=== PATIENT | female | born 1940 | race Caucasian/White ===

== ENCOUNTER 2024-02-01 02:12 | Inpatient (IN) | payer OTHER, SELFPAY ==
[2024-01-31 21:20] VITALS: BP 120/86
[2024-01-31 21:36] LABS: % Basophils 0.3 % (0-2); % Eosinophils 0.1 % (0-6); % Immature Granulocytes 0.3 % (0-0.5); % Lymphocytes 5.6 % (20.5-51.1); % Monocytes 3.5 % (1.7-9.3); % Neutrophils 90.2 % (42.2-75.2); Absolute Lymphocytes 0.9 10^3/uL (1.2-3.4); Absolute Monocytes 0.6 10^3/uL (0.1-0.6); Absolute Neutrophils 14.4 10^3/uL (1.4-6.5); Hematocrit 48.3 % (37.0-47.0); Hemoglobin 16.7 g/dL (12.0-16.0); Mean Corp Hgb Conc. 34.6 g/dL (33.0-37.0); Mean Corpuscular Hgb 31.3 pg (27.0-31.0); Mean Corpuscular Volume 90.6 fL (81.0-99.0); Mean Platelet Volume 8.9 fL (7.4-10.4); Nucleated Red Blood Cells % 0 %; Platelet Count 248 10^3/uL (130-400); Red Blood Cell Count 5.33 10^6/uL (4.20-5.40); Red Cell Dist. Width 12.4 % (11.5-14.5); White Blood Cell Count 15.9 10^3/uL (4.8-10.8)
[2024-01-31 21:50] LABS: ALT (SGPT) 18 U/L (0-35); AST (SGOT) 29 U/L (14-36); Albumin 4.5 g/dl (3.5-5.0); Alkaline Phosphatase 100 U/L (38-126); Blood Urea Nitrogen 22 mg/dl (7-17); Calcium 10.2 mg/dl (8.4-10.2); Carbon Dioxide 30 mmol/L (22-30); Chloride 100 mmol/L (98-107); Glucose 141 mg/dl (70-99); Lipase 65 U/L (23-300); Potassium 4.4 mmol/L (3.5-5.1); Sodium 140 mmol/L (135-145); Total Bilirubin 1.1 mg/dl (0.2-1.3); Total Protein 6.8 g/dl (6.3-8.2); eGFR > 60.00
[2024-01-31 23:44] VITALS: BMI 31.5
[2024-01-31 23:47] VITALS: BP 140/61
[2024-02-01] VITALS (11 sets, daily range): BP systolic 99–125; BP diastolic 52–77; BMI 31.5
[2024-02-01] LABS: Urine Albumin Negative (Neg - Trace); Urine Bilirubin Negative (Negative); Urine Character Slightly Cloudy (Clear); Urine Color Yellow; Urine Glucose Negative (Negative); Urine Ketone Trace (Negative); Urine Leukocyte 2+ (Negative); Urine Nitrite Negative (Negative); Urine Occult Blood Trace (Negative); Urine Urobilinogen Negative (Neg - 1+)
--- NOTE | 2024-02-01 00:32 | ED.GENMED ---
History of Present Illness
General
Chief Complaint: Abdominal Symptoms
Source: patient
Exam Limitations: none
Time Seen by Provider: 01/31/24 23:03
History of Present Illness
History of Present Illness:
This is a 83 year old female that comes in with c/o abd pain. States that she started with vomiting at 12 noon today. Then she would have to go to the bathroom and she would only have little bullets. States that she couldn't even drink any water as
she would vomiting. States that she has pain and she knew she would not sleep tonight due to the pain. States that she had chills and was sweating. Denies any fever, chest pain, SOB, diarrhea, headache, dizziness, urinary burning.
Past History
Past History
ED Past Medical History: HTN and Hypercholesterolemia
ED Past Surgical History: Gynecological (vaginal hysterectomy)
Social History
Tobacco: Non-smoker
Alcohol: Occasional
Drug: None
Personal:
Living: alone
Review of Systems
Review of Systems
All Other Systems: ROS reviewed and negative except as documented in HPI and ROS
Constitutional: Reports chills and other (Sweats); Denies fever
EENT: Reports no symptoms
Respiratory: Reports no symptoms; Denies cough or trouble breathing
Cardiac: Reports no symptoms; Denies chest pain
ABD/GI: Reports abdominal pain, nausea and vomiting; Denies diarrhea
: Reports no symptoms; Denies dysuria, frequency or urgency
Musculoskeletal: Reports no symptoms
Skin: Reports no symptoms
Neurological: Reports no symptoms; Denies dizzy or headache
Psychiatric: Reports no symptoms
Phy Exam
General Physical Exam
General Presentation: no apparent distress
General age: appears stated age
General Skin: warm and dry
General Habitus: elderly
General Mental: alert
General Hydration: appears well hydrated
ENT Exam
ENT Exam: TM's normal, pharynx normal and neck supple
Eye Exam
Eye Exam: EOMI
Cardiovascular Exam
Cardiovascular Exam: regular rate/rhythm, no edema and normal peripheral pulses
Pulmonary Exam
Pulmonary Exam: lungs clear, no respiratory distress, no rales, chest non tender, no crackles, no rhonchi, no wheezing and no cough
Gastrointestinal Exam
Gastrointestinal Exam: soft, no organomegaly, no pulsatile mass, non distended, tender (Generalized abd tenderness with palpation) and other (Hypoactive bowel sounds)
Musculoskeletal Exam
Musculoskeletal Exam: full ROM and no edema
Skin Exam
Skin Exam: normal color, warm/dry, no rash and no petechia
Psychiatric Exam
Psychiatric Exam: normal mood/affect
Course
Orders/Labs/Results
Orders:
Orders
01/31/24 21:29
Complete Blood Count/With Diff Urgent
Comprehensive Metabolic Panel Urgent
Lipase Urgent
01/31/24 23:54
Urinalysis Reflex To Culture Urgent
Date Specimen was Collected: 01/31/24
Time Specimen was Collected: 23:50
Urine Microscopic Reflex Cult Urgent
Urine Culture Urgent
SANDRA Source: U
Specimen Description:
Date Specimen was Collected: 01/31/24
Time Specimen was Collected: 23:50
02/01/24 00:24
CT Abd/pelvis W Iv Cont Urgent
Comment:
Reason For Exam: Generalized abd tenderness with palpaton
0.9% Sodium Chloride 1000 ml [Nss] 1,000 ml IV BOLUS
Ketorolac [Toradol] 30 mg IV NOW STA
Ondansetron Injectable [Zofran] 4 mg IV NOW STA
02/01/24 01:12
CefTRIAXone [Rocephin] 1,000 mg IV NOW STA
02/01/24 01:20
Lactic Acid Urgent
02/01/24 02:00
Admit/Transfer Patient As Directed
Co-Sign Provider:
Level of Care: Inpatient admission
Assign to:: Medical/Surgical
Physician / Group: Waqas
Diagnosis: SBO
Reason for Hospitalization: SBO
Expected length of stay greater than two midnights?: Yes
ELOS- Estimated Length of Stay in days: 3
I certify the patient meets the requirements for IP care: Yes
Code Status As Directed
Resuscitation Status: Do not resuscitate
Reached after discussion with pt or family/Healthcare POA: Yes
PRN Pain Medication Management As Directed
May give lesser potent ordered pain med per pt: Yes
preference::
Protocol:: Medication orders for pain may be administered in a
manner that supports deferring to patient preference
when the pt is:
- Requesting an ordered lesser potent pain medication.
Least to most potent pain medications are defined
as: acetaminophen < NSAID < tramadol < opioids
(morphine, oxycodone, hydromorphone).
- Requesting a lesser dose of the same medication IF
ORDERED.
- Requesting a less intrusive route of administration
if both routes are prescribed by the provider (PO <
IV).
02/01/24 02:01
DNR Bracelet Application ONCE
02/01/24 02:18
0.9% Sodium Chloride 1000 ml [Nss] 1,000 ml IV 100 mls/hr
Acetaminophen [Tylenol] 650 mg PO Q4HPRN PRN
HYDROmorphone [Dilaudid] 0.5 mg IV Q4HPRN PRN
Prochlorperazine [Compazine] 5 mg IV Q6HPRN PRN
02/01/24 02:18
Consult Notification Routine
Specialty to Notify: Surgical
SURGICAL CONSULT Routine
Consulting Provider: Patel Prasad
Was physician already notified: No
Reason for consult: SBO
Activity As Directed
Activity Level: Ambulate
With Assistance
Bladder Scan As Directed
Follow Bladder Retention/Intermittent Cath Algorithm?: Yes
PRN if no void in __ hours: 6
Frequency: Per Retention Algorithm
If Bladder Scan Result >: 400
then:: Straight cath
I/O [Intake/ Output] As Directed
Frequency: Per unit guidelines
Pneumatic Compression Sleeves As Directed
Type: Knee high
Straight Cath As Directed
Frequency: Per Retention Algorithm
Additional Instructions: straight cath as needed per acute urinary retention algorithm for 24 hrs
Additional Instructions: for bladder scan greater than 400 mL
Vital Signs As Directed
Frequency: Per unit guidelines
Oxygen Therapy [O2 Therapy] [RESP] Routine
Titrate/Wean O2 to maintain O2 sat greater than (%): 94
DX Deep Vein Thrombosis Video Routine
02/01/24 Breakfast
NPO
Allow oral meds: Yes
Allow clear liquids: Sips of Clears
Basic Metabolic Panel IN AM
Complete Blood Count/No Diff IN AM
Abnormal Lab Results
01/31/24 01/31/24
21:29 23:54
WBC 15.9 H 10^3/uL
(4.8-10.8)
Hgb 16.7 H g/dL
(12.0-16.0)
Hct 48.3 H %
(37.0-47.0)
MCH 31.3 H pg
(27.0-31.0)
Absolute Neuts (auto) 14.4 H 10^3/uL
(1.4-6.5)
Absolute Lymphs (auto) 0.9 L 10^3/uL
(1.2-3.4)
Neutrophils % 90.2 H %
(42.2-75.2)
Lymphocytes % 5.6 L %
(20.5-51.1)
BUN 22 H mg/dl
(7-17)
Glucose 141 H mg/dl
(70-99)
Urine Ketones Trace A
(Negative)
Ur Occult Blood Reflex Trace A
(Negative)
Leukocyte Esterase Rfl 2+ A
(Negative)
Urine RBC 3-6 A /HPF
(0-2)
Urine WBC (Reflex) 70-80 A /HPF
(0-5)
Urine Bacteria (Reflex) Moderate A
(Negative)
01/31/24 21:29
01/31/24 21:29
Leukocytosis, H/H elevated. Dehydration. hyperglycemia. Lipase normal at 65, Urine positive for infection. Lactic acid normal at 1.6
Vital Signs
Initial and Last Documented VS:
Initial Vital Signs
Temp Pulse Resp BP Pulse Ox
98.1 F 86 24 120/86 94
01/31/24 21:20 01/31/24 21:20 01/31/24 21:20 01/31/24 21:20 01/31/24 21:20
Last Documented Vital Signs
Temp Pulse Resp BP Pulse Ox
98.1 F 86 24 125/72 91
01/31/24 21:20 01/31/24 21:20 01/31/24 21:20 02/01/24 02:00 02/01/24 02:15
MDM/Problems Addressed
Differential Diagnosis Includes:
Diverticulitis, Bowel obstruction. Urinary tract infection
MDM/Problems Addressed:
This is a 83 year old female that comes in with c/o abd pain and vomiting. States that this started at 12 noon today and the pain has gotten worse. States that she also has very little round balls of stool after she vomits.
Will check labs and get CT scan. Will give IV fluids, and medication for nausea and pain.
Back into see patient and daughter. Explained that she has a urinary tract infection and that she has a Bowel obstruction that may be due to adhesions. Patient given IV Rocephin for the UTI. Will admit patient. Hospitalist notified.
Chronic conditions affecting care:
NA
Acute Exacerbation and/or Progression of Chronic Illness:
NA
*Radiology
Radiology exam reviewed: radiology read reviewed (CT night hawk- Dilated small bowel measuring up to 3cm filled with fluid with a transition point in the right lower quadrant just proximal to the terminal ileum suggestive of a distal ileal small
bowel obstruction. There is also a focal loop of small bowel that has an acute angle (series 201 im 59) ) and all reviewed NAD by ED Provider (CT cont- also likely related to adhesions. Colonic diverticulosis without CT evidence of diverticulitis.
Multiple calcified gallstones. No free fluid nor free air. )
*Pulse Oximetry
Patient hypoxic: no
*EKG
Interpreted by ED Provider?: NA
Rate: EKG- N/A
*Floor And Wall Applier Liquid Interpretation
Rate: Floor And Wall Applier Liquid- N/A
*Critical Care Note
Total Time (30-74mins, 75-104mins- exclusive of procedures): Not Applicable
ED Attending Note
-
Portions of this chart may have been created with voice recognition software.� Occasional wrong word or��sound alike� substitutions may have occurred due to the inherent limitations of voice recognition software.
Discharge Plan
Departure
Patient Disposition: Admit
Date of Disposition: 02/01/24
Time of Disposition: 01:35
Admit to: Med/Surg
Presentation/result/management discussed w/ accepting MD/DO: Hospitalist
Patient with high blood pressure during this ER visit?: No
Condition: Good
Covid-19: Not Applicable
Discharge Problem:
Small bowel obstruction due to adhesions, Urinary tract infection
Interventions
Interventions:
*Risk Screen - Suicide Last Done: 01/31/24 21:20
*General Assessment Last Done: 01/31/24 23:44
*Neglect/Abuse Screening Last Done: 01/31/24 21:20
*ED COVID-19 Vaccine History Last Done: 01/31/24 23:14
PN-Gvpgwl-Zloybounzo Assessment Last Done: 01/31/24 23:44
[2024-02-01] MEDS: TORADOL 30 MG IV (00:37)
[2024-02-01] MEDS: NSS 1000 IV ×4 (00:37→23:07)
[2024-02-01] MEDS: ZOFRAN 4 MG IV (00:37)
[2024-02-01 00:59] LABS: Urine Squamous Cell 26-30 /LPF (Few)
[2024-02-01 01:00] LABS: Urine White Cell 70-80 /HPF (0-5)
[2024-02-01 01:01] LABS: Urine Bacteria Moderate (Negative)
[2024-02-01] MEDS: ROCEPHIN 1000 MG IV (01:17)
[2024-02-01 01:41] LABS: Lactic Acid 1.6 mmol/L (0.7-2.0)
--- NOTE | 2024-02-01 02:03 | HPS.HSE ---
Family Physician
-
Family Physician: Clara Tobin MD
Chief Complaint
-
Abd Pain, N/V
History of Present Illness
Patient is an 83y F with PMH significant for hypertension who presents to ED complaining of N/V and abdominal pain. Patient states that she was feeling very well until around noon today. After lunch, she developed crampy lower abdominal pain,
nausea and emesis. She had several episodes of emesis throughout the afternoon - each accompanied by crampy discomfort and an urge to move her bowels. With great effort / straining, she was able to pass only multiple, small, pebble-like stools.
Her last episode of emesis and small bowel movement was around 8PM.
She has had no emesis since that time. No BM and no flatus.
Patient denies any prior history of similar symptoms.
She has remote history of a hysterectomy.
Medical History
Past Medical History
Past Medical History: Reports Other
Additional Past Medical History:
Hypertension
Anxiety / Depression
Past Surgical History: Reports Other
Additional Past Surgical History:
Hysterectomy
Social History
Tobacco: Non-smoker
Alcohol: Occasional
Drug: None
Personal: ( in November.)
Family History
Family History: Not pertinent
Allergies / Home Medications
Allergies reflects when Allergies were last updated in [employer].
Home Medications with original date entered in [employer]
Allergy/Medication List:
Allergies
Allergy/AdvReac Type Severity Reaction Status Date / Time
No Known Allergies Allergy Verified 01/31/24 21:23
Home Medications
escitalopram oxalate 10 mg tablet 10 mg PO DAILY 02/01/24
hydrochlorothiazide 25 mg tablet 25 mg PO DAILY 02/01/24
lisinopril 5 mg tablet 5 mg PO DAILY 02/01/24
Review of Systems
-
History Source: Patient
A 12 point ROS was completed and negative except as noted: Yes
Constitutional: Reports Fatigue; Denies Fever or Chills
Respiratory: Denies Cough or Trouble Breathing
Cardiac: Denies Chest Pain or Palpitations
Abdomen/GI: Reports Abdominal Pain, Nausea, Vomiting and Constipated
: Denies Dysuria or Flank Pain
Musculoskeletal: Denies Joint Pain or Edema
Neurological: Denies Dizzy or Headache
Physical Exam
Vital Signs
Vital Signs
Temp Pulse Resp BP Pulse Ox
98.1 F 86 24 110/64 89
01/31/24 21:20 01/31/24 21:20 01/31/24 21:20 02/01/24 01:20 02/01/24 01:20
Physical Exam
General: Other (83y F in no acute distress.)
HEENT: Moist mucous membranes and PERRLA
Respiratory: Clear; No Wheezes, Rales or Rhonchi
Cardiac: S1/S2 and Regular Rhythm; No Murmur
GI: Other (Softly distended. Bowel sounds diminished but present. Diffusely tender.)
Musculoskeletal: No Clubbing, No Cyanosis and No Edema
Neuro: AO x 3
Laboratory Results
-
01/31/24 21:29
01/31/24 21:29
Laboratory Results
Lactic Acid 1.6 mmol/L (0.7-2.0) 02/01/24 01:20
Total Bilirubin 1.1 mg/dl (0.2-1.3) 01/31/24 21:29
AST 29 U/L (14-36) 01/31/24 21:29
ALT 18 U/L (0-35) 01/31/24 21:29
Alkaline Phosphatase 100 U/L (38-126) 01/31/24 21:29
Lipase 65 U/L (23-300) 01/31/24 21:29
Impression/Plan
-
A/P: Patient is an 83y F with PMH significant for hypertension who presents to ED complaining of N/V and abdominal pain since this afternoon.
SBO
- Admit for further evaluation and treatment.
- CT done in the ED shows dilated small bowel with transition point in the distal ileum / RLQ area.
- Prior surgical history of hysterectomy.
- NPO, IVFs, pain control and antiemetics.
- Place NG for decompression if recurrent emesis or increased pain.
- Surgery evaluation for additional recommendations.
- Follow for clinical improvement.
Leukocytosis
- Likely stress response and hypovolemia with coincident increase in Hgb as well.
- Afebrile and non-toxic appearing.
- Patient has no urinary complaints or other infectious symptoms.
- UA is a contaminated specimen with negative nitrites - doubt UTI.
- Observe off of further abx.
- Follow for changes in CBC.
Benign Hypertension
- NPO / hold usual meds for now.
- Can resume once patient tolerating diet.
- Follow MARTINA in the interim - remains controlled at present.
Anxiety / Depression
Grief
- in November after long illness.
- Resume escitalopram once able to take POs.
DVT Prophylaxis: SCDs
Code Status: DNR
[2024-02-01 05:37] LABS: Hematocrit 39.9 % (37.0-47.0); Hemoglobin 13.6 g/dL (12.0-16.0); Mean Corp Hgb Conc. 34.1 g/dL (33.0-37.0); Mean Corpuscular Hgb 31.3 pg (27.0-31.0); Mean Corpuscular Volume 91.7 fL (81.0-99.0); Mean Platelet Volume 8.8 fL (7.4-10.4); Platelet Count 219 10^3/uL (130-400); Red Blood Cell Count 4.35 10^6/uL (4.20-5.40); Red Cell Dist. Width 12.5 % (11.5-14.5); White Blood Cell Count 13.1 10^3/uL (4.8-10.8)
[2024-02-01 06:08] LABS: Blood Urea Nitrogen 22 mg/dl (7-17); Calcium 8.6 mg/dl (8.4-10.2); Carbon Dioxide 28 mmol/L (22-30); Chloride 106 mmol/L (98-107); Estimated Creatinine Clearance 58 ml/min; Glucose 118 mg/dl (70-99); Potassium 4.5 mmol/L (3.5-5.1); Sodium 141 mmol/L (135-145); eGFR > 60.00
--- NOTE | 2024-02-01 09:20 | CON.GS ---
Medical History
-
Chief Complaint: Abdominal pain, nausea, emesis
History of Present Illness:
Patient is an 83 yo F with a PMH notable for depression/anxiety, HTN, HLD, and s/p vaginal hysterectomy and bladder sling procedure who presents with 24 hours of abdominal pain, nausea, vomiting. Ms. Salinas states that her symptoms began somewhat
acutely yesterday afternoon. She reports waves of intense generalized crampy abdominal pain, though primarily in her lower abdomen. Associated nausea and vomiting. Her symptoms progressed prompting presentation to the ED. Associated chills, but
no fevers. Over the previous few months, the patient and her daughter report episodes of diarrhea. She denies any abdominal cramping, bloating, nausea, or vomiting during these episodes. She previously attributed these episodes to stress and IBS
related to the recent passing of her late . Prior colonoscopy was over 10 years ago with reported removal of polyps. No reported history of GI malignancies. She was told that she has had diverticulosis, but denies any clear episodes of
diverticulitis. Currently she states that her symptoms are much improved. She reports some mild to moderate residual abdominal discomfort. She is passing a small amount of flatus. No BM. No nausea.
Past Medical History
Past Medical History: HTN, Hypercholesterolemia and Psychiatric (Depression/anxiety)
Past Surgical History: Gynecological (Transvaginal hysterectomy, bladder sling procedure)
Social History
Tobacco: Non-Smoker
Alcohol: None
Drug: None
Family History
Family History: Reviewed & Noncontributory
Allergies / Home Medications
Allergy/AdvReac Type Severity Reaction Status Date / Time
No Known Allergies Allergy Verified 01/31/24 21:23
�Medication �Instructions �Recorded �Confirmed �Type
aspirin 325 mg tablet 325 mg PO BIDPRN PRN headaches 02/01/24 02/01/24 History
atorvastatin 20 mg tablet (Lipitor) 20 mg PO QPM 02/01/24 02/01/24 History
calcium carbonate 500 mg PO DAILY 02/01/24 02/01/24 History
clonazepam 0.5 mg tablet 0.5 mg PO HS 02/01/24 02/01/24 History
docusate sodium 100 mg capsule 100 mg PO BIDPRN PRN constipation 02/01/24 02/01/24 History
(Colace)
escitalopram oxalate 10 mg tablet 10 mg PO DAILY 02/01/24 02/01/24 History
hydrochlorothiazide 25 mg tablet 25 mg PO DAILY 02/01/24 02/01/24 History
lisinopril 5 mg tablet 5 mg PO DAILY 02/01/24 02/01/24 History
vitamin B complex 1 tab PO DAILY 02/01/24 02/01/24 History
Review of Systems
-
A 10 point review of systems was completed, and was negative except as per HPI.
Physical Exam
Vital Signs
Temp Pulse Resp BP Pulse Ox
98.5 F 63 17 108/58 93
02/01/24 08:17 02/01/24 08:17 02/01/24 08:17 02/01/24 08:17 02/01/24 08:17
01/31/24 02/01/24 02/02/24
06:59 06:59 06:59
Actual Weight 78 kg
Body Mass Index (BMI) 31.5
Lab Results
02/01/24 05:29
02/01/24 05:29
WBC 13.1 10^3/uL (4.8-10.8) H 02/01/24 05:29
Hgb 13.6 g/dL (12.0-16.0) 02/01/24 05:29
Hct 39.9 % (37.0-47.0) 02/01/24 05:29
Plt Count 219 10^3/uL (130-400) 02/01/24 05:29
Abs Immat Gran (auto) 0.0 10^3/uL (0-0.05) 01/31/24 21:29
Neutrophils % 90.2 % (42.2-75.2) H 01/31/24 21:29
Physical Exam
General: Well Developed, Well Nourished and No Apparent Distress
HEENT: Normocephalic and Anicteric
Respiratory: Non Labored Respirations
Cardiac: Regular Rhythm
GI: Soft, Tender (Mild/moderate lower abdomen), Distended (Mild/moderate lower abdomen) and Other (Non-peritoneal (no rebound or guarding))
Skin: Warm and Dry
Neuro: Nonfocal/Grossly Intact
Data Reviewed
-
CT Scan: Image Personally Visualized and interpreted and Report Reviewed by me
Labs: Labs Reviewed by me
Assessment / Plan
-
Patient is an 83 yo F p/w likely SBO
The natural history pathophysiology of bowel obstructions was reviewed. Workup thus far including labs and CT scan imaging was reviewed. No clinical or radiographic concern for bowel ischemia, closed-loop obstruction, pneumatosis, or free air.
Somewhat concerning given her lack of prior abdominal surgeries and advanced age, though no evidence of a mass on CT scan imaging. Signs of clinical improvement. Recommend trial of medical management with continued bowel rest, IV fluids,
ambulation, minimize narcotics, and correction of electrolytes. If no improvement/resolution in symptoms after a 24-hour period of bowel rest would proceed with UGI for diagnostic and therapeutic purposes. Patient and daughter agree. All
questions answered.
-- NPO sips of clears for comfort only
-- IVF
-- NGT for any nausea or worsening pain - pros and cons, risks and benefits of NGT placement were reviewed, given her clinical improvement with passage of flatus, improved abdominal pain, and lack of current nausea we will hold on an NGT at this time
-- OOB/ambulate
-- Correct lytes
-- Minimize narcotics
-- UGI tomorrow if no clinical improvement
--- NOTE | 2024-02-01 09:22 | PTCARENOTE ---
pt aaox3. states abd pain has improved now 2/10 does not want pain med now. encouraged to let rn know if it gets worse. plan of care reviewed with pt and daughter at bedside.
--- NOTE | 2024-02-01 13:50 | W.PN.HOSP.TC ---
Today's Communication/Plan
-
npo, ice chips for today
ngt and UGI if symptoms worsen
Assessment / Plan
Assessment / Plan
Physical Exam
General: Other (83y F in no acute distress.)
HEENT: Moist mucous membranes and PERRLA
Respiratory: Clear; No Wheezes, Rales or Rhonchi
Cardiac: S1/S2 and Regular Rhythm; No Murmur
GI: Other (soft, non distended. Bowel sounds diminished but present. )
A/P: Patient is an 83y F with PMH significant for hypertension who presents to ED complaining of N/V and abdominal pain since this afternoon.
SBO
- Admit for further evaluation and treatment.
- CT done in the ED shows dilated small bowel with transition point in the distal ileum / RLQ area.
- Prior surgical history of hysterectomy.
- NPO with Ice Chips, IVFs, pain control and antiemetics.
- Surgery evaluation for additional recommendations.
- Follow for clinical improvement.
- NGT if worsened
Leukocytosis
- Likely stress response and hypovolemia with coincident increase in Hgb as well.
- Afebrile and non-toxic appearing.
-no urinary symptoms
- Observe off of further abx.
- Follow fever curve, CBC.
Benign Hypertension
- NPO / hold usual meds for now.
- Can resume once patient tolerating diet.
- Follow MARTINA in the interim - remains controlled at present.
Anxiety / Depression
Grief
- in November after long illness.
- Resume escitalopram once able to take POs.
DVT Prophylaxis: SCDs
Code Status: DNR
Musculoskeletal: No Clubbing, No Cyanosis and No Edema
Neuro: AO x 3
Anticipated Discharge: 24 - 48 hours
Subjective/Interval History
-
Date of Service: February 01, 2024
passing flatus, distension improved
Objective Data
-
Labs:
Laboratory Results
02/01/24
05:29
WBC 13.1 H
Hgb 13.6
Hct 39.9
Plt Count 219
Sodium 141
Potassium 4.5
Chloride 106
Carbon Dioxide 28
BUN 22 H
Creatinine 0.7
Glucose 118 H
Calcium 8.6 D
Vital Signs:
Vital Signs
Temp Pulse Resp BP Pulse Ox
98.5 F 63 17 99/61 96
02/01/24 08:17 02/01/24 08:17 02/01/24 08:17 02/01/24 09:00 02/01/24 09:00
Review of Systems
-
History Source: Patient
All other systems: Not reviewed unless documented
Data Reviewed
-
CT Scan: Image personally visualized and interpreted and Report Reviewed by me
Labs: Labs Reviewed by me
[2024-02-01] MEDS: TYLENOL 650 MG PO ×2 (15:59→20:13)
[2024-02-01] MEDS: KLONOPIN 0.5 MG PO (21:26)
[2024-02-02 07:01] LABS: Hematocrit 38.6 % (37.0-47.0); Hemoglobin 12.9 g/dL (12.0-16.0); Mean Corp Hgb Conc. 33.4 g/dL (33.0-37.0); Mean Corpuscular Hgb 31.4 pg (27.0-31.0); Mean Corpuscular Volume 93.9 fL (81.0-99.0); Mean Platelet Volume 8.6 fL (7.4-10.4); Platelet Count 193 10^3/uL (130-400); Red Blood Cell Count 4.11 10^6/uL (4.20-5.40); Red Cell Dist. Width 12.9 % (11.5-14.5); White Blood Cell Count 8.6 10^3/uL (4.8-10.8)
[2024-02-02 07:10] VITALS: BP 115/54
[2024-02-02 09:08] LABS: ALT (SGPT) 13 U/L (0-35); AST (SGOT) 25 U/L (14-36); Alkaline Phosphatase 73 U/L (38-126); Blood Urea Nitrogen 23 mg/dl (7-17); Calcium 8.4 mg/dl (8.4-10.2); Carbon Dioxide 22 mmol/L (22-30); Chloride 111 mmol/L (98-107); Estimated Creatinine Clearance 58 ml/min; Glucose 77 mg/dl (70-99); Magnesium 1.9 mg/dl (1.6-2.3); Potassium 3.8 mmol/L (3.5-5.1); Sodium 142 mmol/L (135-145); Total Bilirubin 1.4 mg/dl (0.2-1.3); eGFR > 60.00
[2024-02-02] MEDS: NSS 1000 IV (09:30)
--- NOTE | 2024-02-02 11:34 | W.PN.GS2 ---
Today's Communication / Plan
-
CLD
Assessment / Plan
-
83F with resolving pSBO
AFVSS, clinically improving with passage of flatus and resolution of abd pain and nausea
Trial CLD
All other care as per primary team
Subjective Data
-
Date of Service: February 02, 2024
AFVSS, feels much better, passing flatus, denies n/v, pain resolved
Objective Data
-
Intake and Output
02/01/24 02/02/24 02/03/24
06:59 06:59 06:59
Intake Total 60 / 60
Balance 60 / 60
Intake:
Oral fluids 60 / 60
Other:
Number of approximated MODERATE 2
amounts of urine
Vital Signs
Temp Pulse Resp BP Pulse Ox
98.4 F 53 17 115/54 92
02/02/24 07:10 02/02/24 07:10 02/02/24 07:10 02/02/24 07:10 02/02/24 07:10
Lab Results
02/02/24 06:53
02/02/24 06:53
Calcium 8.4 mg/dl (8.4-10.2) 02/02/24 06:53
Magnesium 1.9 mg/dl (1.6-2.3) 02/02/24 06:53
Total Bilirubin 1.4 mg/dl (0.2-1.3) H 02/02/24 06:53
AST 25 U/L (14-36) 02/02/24 06:53
ALT 13 U/L (0-35) 02/02/24 06:53
Alkaline Phosphatase 73 U/L (38-126) 02/02/24 06:53
Total Protein 5.0 g/dl (6.3-8.2) L D 02/02/24 06:53
Albumin 3.0 g/dl (3.5-5.0) L D 02/02/24 06:53
Physical Exam
-
Gen: NAD
Abd: soft, nt, nd
--- NOTE | 2024-02-02 12:59 | W.PN.HOSP.TC ---
Today's Communication/Plan
-
ADAT - CLD
Assessment / Plan
Assessment / Plan
Physical Exam
General: Other (83y F in no acute distress.)
HEENT: Moist mucous membranes and PERRLA
Respiratory: Clear; No Wheezes, Rales or Rhonchi
Cardiac: S1/S2 and Regular Rhythm; No Murmur
GI: Other (soft, non distended. Bowel sounds diminished but present. )
A/P: Patient is an 83y F with PMH significant for hypertension who presents to ED complaining of N/V and abdominal pain since this afternoon.
SBO
- Admit for further evaluation and treatment.
- CT done in the ED shows dilated small bowel with transition point in the distal ileum / RLQ area.
- Prior surgical history of hysterectomy.
- Advance to clear liquid diet today
- Surgery evaluation for additional recommendations.
- Follow for clinical improvement.
Leukocytosis
- Likely stress response and hypovolemia with coincident increase in Hgb as well.
�Improving
- Observe off of further abx.
- Follow fever curve, CBC.
Benign Hypertension
- Can resume once patient tolerating diet.
- Follow BP in the interim - remains controlled at present.
Anxiety / Depression
Grief
- in November after long illness.
- Resume escitalopram once able to take POs.
DVT Prophylaxis: HSQ
Code Status: DNR
Anticipated Discharge: Within 24 hours
Subjective/Interval History
-
Date of Service: February 02, 2024
Passing flatus, no bowel movement as of yet. Improved pain and nausea.
Objective Data
-
Labs:
Laboratory Results
02/02/24
06:53
WBC 8.6
Hgb 12.9
Hct 38.6
Plt Count 193
Sodium 142
Potassium 3.8
Chloride 111 H
Carbon Dioxide 22
BUN 23 H
Creatinine 0.7
Glucose 77
Calcium 8.4
Total Bilirubin 1.4 H
AST 25
ALT 13
Alkaline Phosphatase 73
Vital Signs:
Vital Signs
Temp Pulse Resp BP Pulse Ox
98.4 F 53 17 115/54 92
02/02/24 07:10 02/02/24 07:10 02/02/24 07:10 02/02/24 07:10 02/02/24 07:10
I&O
02/01/24 02/02/24 02/03/24
06:59 06:59 06:59
Intake Total 60 / 60
Balance 60 / 60
Review of Systems
-
History Source: Patient
All other systems: Not reviewed unless documented
Data Reviewed
-
CT Scan: Image personally visualized and interpreted and Report Reviewed by me
Labs: Labs Reviewed by me
--- NOTE | 2024-02-02 14:57 | CM ---
Reviewed chart, met with patient to obtain information for assessment. Patient stated that she lives alone in a [place] and over community, in a single home with no steps to enter. Her spouse a few months ago however she has very supportive
children in the area. Patient described herself as independent with all of her ADls, personal care, dressing and bathing. She ambulates without device. 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
Patient denied any DME in her home.
She has never had VN services.
Patient has not been to SNF in the past.
Patient has a prescription plan and uses, [facility] in [place] for all of her medications.
Her PCP is, Clara Tobin.
Patient stated that she is at her baseline functionally and is tolerating her diet so far. She was advised that she will not need surgical intervention which is a relief to her.
She feels that she will be able to return home when stable and relayed that she has been ambulating without assistance within her room.
Plan: Case management will continue to follow and assist with discharge planning. Home when stable.
[2024-02-02] MEDS: TYLENOL 650 MG PO ×2 (15:00→19:52)
[2024-02-02 15:10] VITALS: BP 113/47
[2024-02-02] MEDS: HEPARIN 5000 UNITS SC ×2 (15:55→22:59)
[2024-02-02] MEDS: KLONOPIN 0.5 MG PO (21:06)
[2024-02-02 23:06] VITALS: BP 116/48
[2024-02-03 06:55] LABS: Hematocrit 36.4 % (37.0-47.0); Hemoglobin 12.7 g/dL (12.0-16.0); Mean Corp Hgb Conc. 34.9 g/dL (33.0-37.0); Mean Corpuscular Hgb 31.7 pg (27.0-31.0); Mean Corpuscular Volume 90.8 fL (81.0-99.0); Platelet Count 180 10^3/uL (130-400); Red Blood Cell Count 4.01 10^6/uL (4.20-5.40); Red Cell Dist. Width 12.5 % (11.5-14.5); White Blood Cell Count 6.7 10^3/uL (4.8-10.8)
[2024-02-03 07:15] LABS: ALT (SGPT) 13 U/L (0-35); AST (SGOT) 28 U/L (14-36); Albumin 2.8 g/dl (3.5-5.0); Alkaline Phosphatase 63 U/L (38-126); Blood Urea Nitrogen 17 mg/dl (7-17); Calcium 8.3 mg/dl (8.4-10.2); Carbon Dioxide 24 mmol/L (22-30); Chloride 110 mmol/L (98-107); Estimated Creatinine Clearance 67 ml/min; Glucose 87 mg/dl (70-99); Potassium 3.8 mmol/L (3.5-5.1); Sodium 143 mmol/L (135-145); Total Bilirubin 1.2 mg/dl (0.2-1.3); Total Protein 4.8 g/dl (6.3-8.2); eGFR > 60.00
[2024-02-03 07:38] VITALS: BP 119/56
--- NOTE | 2024-02-03 08:12 | W.PN.GS2 ---
Today's Communication / Plan
-
`
Assessment / Plan
-
Assessment: 83F with resolving pSBO likely secondary to adhesions with remote h/o JOSEPH
AFVSS
return of GI function and resolution of symptoms
Plan: low residue diet
d/c home if tolerates PO intake
dietary counseling provided
Subjective Data
-
Date of Service: February 03, 2024
pt seen and examined
feeling much better
+fl and loose BMs
appetite returning
denies nausea, no abdominal pain, no distention
Objective Data
-
Intake and Output
02/02/24 02/03/24 02/04/24
06:59 06:59 06:59
Intake Total 60 / 60 1440 / 1440
Balance 60 / 60 1440 / 1440
Intake:
Oral fluids 60 / 60 1440 / 1440
Other:
Number of approximated MODERATE 2 2
amounts of urine
Number of approximated LARGE 3
amounts of urine
Vital Signs
Temp Pulse Resp BP Pulse Ox
97.7 F 56 17 119/56 95
02/03/24 07:38 02/03/24 07:38 02/03/24 07:38 02/03/24 07:38 02/03/24 07:38
Lab Results
02/03/24 06:25
02/03/24 06:25
Calcium 8.3 mg/dl (8.4-10.2) L 02/03/24 06:25
Magnesium 1.9 mg/dl (1.6-2.3) 02/02/24 06:53
Total Bilirubin 1.2 mg/dl (0.2-1.3) 02/03/24 06:25
AST 28 U/L (14-36) 02/03/24 06:25
ALT 13 U/L (0-35) 02/03/24 06:25
Alkaline Phosphatase 63 U/L (38-126) 02/03/24 06:25
Total Protein 4.8 g/dl (6.3-8.2) L 02/03/24 06:25
Albumin 2.8 g/dl (3.5-5.0) L 02/03/24 06:25
Physical Exam
-
NAD AAOx3
ABD: soft, ND, NTTP
[2024-02-03] MEDS: HEPARIN 5000 UNITS SC (08:35)
[2024-02-03] MEDS: LEXAPRO 10 MG PO (08:35)
[2024-02-03] MEDS: TYLENOL 650 MG PO (10:50)
--- NOTE | 2024-02-03 12:04 | W.PN.HOSP.TC ---
Addendum entered and electronically signed by Tho Johnson MD 02/04/24 18:17:
can restart antihtn meds as hypertensive here
[id number]
Original Note:
Today's Communication/Plan
-
LRD
hold antihypertensives until seen by PCP
Follow-up PCP, surgery outpatient
Assessment / Plan
Assessment / Plan
Physical Exam
General: Other (83y F in no acute distress.)
HEENT: Moist mucous membranes and PERRLA
Respiratory: Clear; No Wheezes, Rales or Rhonchi
Cardiac: S1/S2 and Regular Rhythm; No Murmur
GI: Other (soft, non distended. Bowel sounds diminished but present. )
A/P: Patient is an 83y F with PMH significant for hypertension who presents to ED complaining of N/V and abdominal pain since this afternoon.
pSBO
likely secondary to adhesions with remote h/o JOSEPH
- adv to LRD - if tolerates can continue LRD and DC
-F/u PCP, Surgery outpatient
Leukocytosis
- Likely stress response and hypovolemia with coincident increase in Hgb as well.
�Improving
- Follow CBC outpatient
Benign Hypertension
- BP is stable, normal/low - can hold antihypertensives and can consider restarting with PCP outpatient
Anxiety / Depression
Grief
- in November after long illness.
- Resume escitalopram once able to take POs.
DVT Prophylaxis: HSQ
Code Status: DNR
More than 30 minutes spent in discharge including
Final examination of the patient
Summarizing hospital stay
Instructions for continuing care to all relevant caregivers
Preparation of discharge records, prescriptions, and referral forms
Total time spent (36 in minutes):
Anticipated Discharge: Today
Subjective/Interval History
-
Date of Service: February 03, 2024
passing flatus, appetite improving. had small bm yesterday
Objective Data
-
Labs:
Laboratory Results
02/03/24
06:25
WBC 6.7
Hgb 12.7
Hct 36.4 L
Plt Count 180
Sodium 143
Potassium 3.8
Chloride 110 H
Carbon Dioxide 24
BUN 17
Creatinine 0.6
Glucose 87
Calcium 8.3 L
Total Bilirubin 1.2
AST 28
ALT 13
Alkaline Phosphatase 63
Vital Signs:
Vital Signs
Temp Pulse Resp BP Pulse Ox
97.7 F 56 17 119/56 95
02/03/24 07:38 02/03/24 07:38 02/03/24 07:38 02/03/24 07:38 02/03/24 07:38
I&O
02/02/24 02/03/24 02/04/24
06:59 06:59 06:59
Intake Total 60 / 60 1440 / 1440
Balance 60 / 60 1440 / 1440
Review of Systems
-
History Source: Patient
All other systems: Not reviewed unless documented
Data Reviewed
-
CT Scan: Image personally visualized and interpreted and Report Reviewed by me
Labs: Labs Reviewed by me
--- NOTE | 2024-02-03 12:07 | W.DS.TRANS ---
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
-
Discharge Instructions:
Discharge Diagnosis/Procedures pSBO likely secondary to adhesions with remote h
/o JOSEPH
Diet Low Residue
Activity As tolerated
Instructions: Small Bowel Obstruction (DC)
Stand-Alone Forms:
Changes to Home Medications: Yes
Discharge Medications:
DC Medications w/original date entered in Buffer
aspirin 325 mg tablet 325 mg PO BIDPRN PRN headaches 02/01/24
atorvastatin 20 mg tablet (Lipitor) 20 mg PO QPM 02/01/24
calcium carbonate 500 mg PO DAILY 02/01/24
clonazepam 0.5 mg tablet 0.5 mg PO HS 02/01/24
docusate sodium 100 mg capsule (Colace) 100 mg PO BIDPRN PRN constipation 02/01/24
escitalopram oxalate 10 mg tablet 10 mg PO DAILY 02/01/24
hydrochlorothiazide 25 mg tablet 25 mg PO DAILY 02/01/24
lisinopril 5 mg tablet 5 mg PO DAILY 02/01/24
vitamin B complex 1 tab PO DAILY 02/01/24
Home Medication Changes
Hold:
hydrochlorothiazide 25 mg tablet 25 mg PO DAILY 02/01/24
lisinopril 5 mg tablet 5 mg PO DAILY 02/01/24
Pending Results: No
--- NOTE | 2024-02-03 14:20 | PTCARENOTE ---
PRN Tylenol effective for patient's c/o abd pain t/o, continent of yellow loose stool in br, tolerating low residue diet, independent, vss, will continue to monitor.
[2024-02-03 15:07] VITALS: BP 170/67
--- NOTE | 2024-02-03 15:31 | CM ---
Reviewed chart, patient medically cleared for discharge. Son at bedside. Reviewed IMM. Patient signed. It is now on chart.
Plan: Case management will continue to follow and assist with discharge planning. Home.
--- NOTE | 2024-02-03 15:35 | PTCARENOTE ---
patient's b/p 170/67, asymptomatic, Lisinopril and Hydrochlorothiazide on hold. Notified Tho Johnson and he will place order for Lisinopril, see new order, will continue to monitor.
[2024-02-03] MEDS: ZESTRIL 5 MG PO (16:07)
[2024-02-03 17:10] VITALS: BP 155/65
--- NOTE | 2024-02-03 17:10 | PTCARENOTE ---
b/p improved 155/65, for discharge to home.
[2024-02-03] MEDS: HEPARIN SC (17:31)
== END 2024-02-03 18:39 | disposition home or self-care (01) | DRG 390 ==
LOC: 3 WEST ACU 02:12
PROVIDERS: Clinical Nurse Specialist Family Health; Emergency Medicine; ADMITTING PHYSICIAN Hospitalist; ATTENDING PHYSICIAN Internal Medicine; CONSULT PHYSICIAN Surgery; EMERGENCY PHYSICIAN Emergency Medicine; FAMILY PHYSICIAN Family Medicine
DX: K56.51 Intestinal adhesions [bands], with partial obstruction (principal); F32.A Depression, unspecified; I10 Essential (primary) hypertension; Z66 Do not resuscitate; K58.9 Irritable bowel syndrome, unspecified; E78.00 Pure hypercholesterolemia, unspecified; E86.1 Hypovolemia; F41.9 Anxiety disorder, unspecified; Z63.4 Disappearance and death of family member; Z79.899 Other long term (current) drug therapy; Z87.19 Personal history of other diseases of the digestive system; Z90.710 Acquired absence of both cervix and uterus
CPT/HCPCS: 74177; 80048; 80053; 81003; 81015; 83605; 83690; 83735; 85025; 85027; 87086; 96361; 96374; 96375; 99285; Q9967

== ENCOUNTER → 2024-03-10 12:26 | Outpatient (REF) | payer OTHER, SELFPAY | LOC: HWRAD 12:26 | PROVIDERS: ATTENDING PHYSICIAN Family Medicine | DX: J18.9 Pneumonia, unspecified organism (principal) | CPT/HCPCS: 71046 ==

== ENCOUNTER → 2024-09-29 07:47 | Outpatient (REF) | payer OTHER, SELFPAY | LOC: RAD 07:47 | PROVIDERS: ATTENDING PHYSICIAN Family Medicine | DX: R19.7 Diarrhea, unspecified (principal); Z87.19 Personal history of other diseases of the digestive system | CPT/HCPCS: 74177; Q9967 ==

== ENCOUNTER → 2024-12-29 10:21 | Outpatient (REF) | payer OTHER, SELFPAY | LOC: WDC 10:21 | PROVIDERS: ATTENDING PHYSICIAN Family Medicine | DX: Z78.0 Asymptomatic menopausal state (principal); Z12.31 Encounter for screening mammogram for malignant neoplasm of breast | CPT/HCPCS: 77063; 77067; 77080 ==